=== PATIENT | male | born 1950 ===

== ENCOUNTER 2024-09-16 06:25 | Outpatient (CLI) | payer OTHER ==
[~2024-09-16] VITALS: Ht 175.3 cm; Wt 90.7 kg
[~2024-09-16 06:25] MED LIST: AMLODIPINE BESY10 MG PO; CANDESARTAN CIL32 MG PO; CLONAZEPAM0.5 MG PO; [UNRECOGNIZED DRUG - OTHER] PO
== END 2024-09-16 08:00 | disposition home or self-care (01) ==
LOC: LAB 06:25 → EDSTATUS 12:45 → SURH 12:45
PROVIDERS: ATTEND Surgery
DX: C7A.021 Malignant carcinoid tumor of the cecum (principal); C7A.020 Malignant carcinoid tumor of the appendix; R59.0 Localized enlarged lymph nodes; D12.2 Benign neoplasm of ascending colon

== ENCOUNTER 2024-11-18 11:11 | Inpatient (IN) | payer OTHER ==
[~2024-11-18] VITALS: Ht 175.3 cm; Wt 90.7 kg
[2024-11-25] MEDS ORDERED: LIDOCAINE HCL 1%/EPINEPHRINE 20ML VIAL IJ ONE ×2 (08:38→10:15)
[2024-11-25] MEDS ORDERED: BUPIVACAINE HCL 30 ML VIAL IJ ONE (10:15)
[2024-11-25] MEDS ORDERED: METRONIDAZOLE/SODIUM CHLORIDE 500 MG/100 ML PIGGYBACK IV ONE (10:15)
[2024-11-25] MEDS ORDERED: CEFTRIAXONE SODIUM 2,000 MG VIAL IV ONE (10:15)
[2024-11-25] MEDS ORDERED: OxyCODONE HCL 5 MG TABLET (ROXICODONE) PO PRN (11:00)
[2024-11-25] MEDS ORDERED: MORPHINE SULFATE 4 MG/ML CARTRIDGE IV PRN (11:00)
[2024-11-25] MEDS ORDERED: ONDANSETRON HCL 2 MG/ML VIAL IV PRN (11:00)
[2024-11-25] MEDS ORDERED: DEXTROSE 50 % IN WATER 0.5 G/ML VIAL IV PRN (11:00)
[2024-11-25] MEDS ORDERED: RINGERS SOLUTION,LACTATED 1,000 ML IV SCH (11:00)
[2024-11-25 12:33] LABS: BASO % 0.4 % (0.1-1.2); EOS # 0.16 (0.04-0.54); EOS % 2.2 % (0.7-7.0); LYMPH # 1.15 (1.18-3.74); LYMPH % 16.0 % (19.3-53.1); MEAN PLATELET VOLUME 10.70 fl (9.4-12.4); MONO # 0.47 (0.24-0.82); MONO % 6.5 % (4.7-12.5); NEUT # 5.37 (1.56-6.13); NEUT % 74.5 % (34.0-71.1); RED CELL DISTRIBUTION WIDTH 15.0 % (11.6-14.4)
[2024-11-25] MEDS ORDERED: MORPHINE SULFATE 4 MG/ML VIAL IV ONE ×2 (12:45→14:55)
[2024-11-25] MEDS ORDERED: hydrALAZINE HCL 20 MG VIAL IV PRN (13:15)
[2024-11-25 13:22] LABS: BUN CREA RATIO 9.0 (7.0-25.0); CREATININE SERUM 1.35 mg/dL (0.70-1.30); GFR 51.66; GLUCOSE FASTING 129.0 mg/dL (65-100); OSMOLALITY SERUM 285.0 MOSM/KG (275-295)
[2024-11-25] MEDS ORDERED: ACETAMINOPHEN 500 MG GEL..CAP PO SCH (14:00)
[2024-11-25] MEDS ORDERED: GABAPENTIN 300 MG CAPSULE PO ONE (16:31)
[2024-11-25] MEDS ORDERED: GABAPENTIN 300 MG CAPSULE PO SCH (17:00)
[2024-11-25 17:52] VITALS: BP 119/73; O2SAT 96
[2024-11-25] MEDS ORDERED: AMLODIPINE BESYLATE 10 MG TABLET PO SCH (21:00)
[2024-11-25] MEDS ORDERED: FAMOTIDINE/PF 20 MG/2 ML VIAL IV PUSH SCH (21:00)
[2024-11-26 01:52] VITALS: BP 127/72; O2SAT 90
[2024-11-26 06:46] LABS: BASO % 0.4 % (0.1-1.2); EOS # 0.22 (0.04-0.54); EOS % 2.8 % (0.7-7.0); LYMPH # 1.20 (1.18-3.74); LYMPH % 15.1 % (19.3-53.1); MEAN PLATELET VOLUME 10.80 fl (9.4-12.4); MONO # 0.76 (0.24-0.82); MONO % 9.5 % (4.7-12.5); NEUT # 5.73 (1.56-6.13); NEUT % 71.8 % (34.0-71.1); RED CELL DISTRIBUTION WIDTH 15.1 % (11.6-14.4)
[2024-11-26 07:43] LABS: BUN CREA RATIO 9.0 (7.0-25.0); CREATININE SERUM 0.89 mg/dL (0.70-1.30); GFR 83.56; GLUCOSE FASTING 78.0 mg/dL (65-100); OSMOLALITY SERUM 284.0 MOSM/KG (275-295)
[2024-11-26 08:41] VITALS: BP 132/70; O2SAT 97
[2024-11-26] MEDS ORDERED: CANDESARTAN CILEXETIL 32 MG TABLET PO SCH (09:00)
[2024-11-26] MEDS ORDERED: ENOXAPARIN SODIUM 40 MG/0.4 ML SYRINGE SUBCUTANEO SCH (17:00)
[2024-11-26 18:00] VITALS: BP 139/81; O2SAT 98
[2024-11-26] MEDS ORDERED: PATIENTS OWN MEDICATION (MEDICAMENTO EN PISO) PO SCH (21:00)
[2024-11-27 01:56] VITALS: BP 133/81; O2SAT 98
[2024-11-27 06:52] LABS: BASO % 0.6 % (0.1-1.2); EOS # 0.27 (0.04-0.54); EOS % 3.7 % (0.7-7.0); LYMPH # 1.28 (1.18-3.74); LYMPH % 17.7 % (19.3-53.1); MEAN PLATELET VOLUME 10.80 fl (9.4-12.4); MONO # 0.73 (0.24-0.82); MONO % 10.1 % (4.7-12.5); NEUT # 4.88 (1.56-6.13); NEUT % 67.6 % (34.0-71.1); RED CELL DISTRIBUTION WIDTH 14.9 % (11.6-14.4)
[2024-11-27 07:30] LABS: BUN CREA RATIO 6.0 (7.0-25.0); CREATININE SERUM 1.09 mg/dL (0.70-1.30); GFR 66.13; GLUCOSE FASTING 83.0 mg/dL (65-100); OSMOLALITY SERUM 284.0 MOSM/KG (275-295)
[2024-11-27 08:32] VITALS: BP 136/70; O2SAT 97
[2024-11-27] MEDS ORDERED: ENOXAPARIN SODIUM 40 MG/0.4 ML SYRINGE SUBCUTANEO SCH (09:00)
[2024-11-27] MEDS ORDERED: HYOSCYAMINE0.125 M1 SL (10:27)
[2024-11-27] MEDS ORDERED: INTESTINEX680 M1 PO (10:27)
== END 2024-11-27 14:06 | disposition home or self-care (01) | DRG 331 ==
LOC: SURH 11-25 07:00 → O/R 11-25 07:00 → SURH 11-25 12:30
PROVIDERS: Internal Medicine Geriatric Medicine; ADMIT Surgery; ATTEND Surgery
PROC: 0DBH4ZZ Excision of Cecum, Percutaneous Endoscopic Approach (ICD-10-PCS; principal; 2024-11-25 07:00)
DX: C7A.021 Malignant carcinoid tumor of the cecum (principal); C7A.020 Malignant carcinoid tumor of the appendix; R59.0 Localized enlarged lymph nodes